=== PATIENT | male | born 1995 ===

== ENCOUNTER 2021-07-21 09:19 | Emergency (ER) | payer OTHER ==
--- NOTE | 2021-07-21 10:59 | RAD REPORT ---
EXAM DESCRIPTION: RAD - Ankle Right 3 View - 07/21/2021 10:52 am CLINICAL HISTORY: Smash injury;Pain COMPARISON: No comparisons FINDINGS: No bone or joint abnormality is detected.
--- NOTE | 2021-07-21 11:51 | ER ---
Nurse's Notes [facility] Name: Paul Duvall Age: 26 yrs Sex: Male : 1995 Arrival Date: 07/21/2021 Time: 09:35 Bed 10 Private MD: Diagnosis: Pain in right ankle and joints of right foot;Injury of Achilles tendon Presentation: 07/21 10:10 Chief complaint: Patient states: that on Wednesday07/18/2021, Patient injured his right ap3 ankle while at work. Patient reports a heavy door hit the back side of his ankle and his foot was wedged there for a reported brief moment. Patient states there was a small, superficial laceration on the backside of the ankle. Patient reports pain of 2/10 at this time. Coronavirus screen: At this time, the client does not indicate any symptoms associated with coronavirus-19. Ebola Screen: No symptoms or risks identified at this time. Initial Sepsis Screen: Does the patient meet any 2 criteria? No. Patient's initial sepsis screen is negative. Does the patient have a suspected source of infection? No. Patient's initial sepsis screen is negative. Risk Assessment: Do you want to hurt yourself or someone else? Patient reports no desire to harm self or others. Onset of symptoms was July 18, 2021. 10:10 Method Of Arrival: Ambulatory ap3 10:10 Acuity: SHEA 4 ap3 Triage Assessment: 10:17 General: Appears in no apparent distress. Behavior is calm, cooperative, appropriate ap3 for age. Pain: Complains of pain in right Achilles Pain began suddenly, 2-3 days ago. Neuro: Level of Consciousness is awake, alert, obeys commands, Oriented to person, place, time, situation, Appropriate for age. Respiratory: Airway is patent Respiratory effort is even, unlabored. Musculoskeletal: Range of motion: intact in all extremities. Historical: - Allergies: 10:14 Contrast Iodine; ap3 10:14 Codeine; ap3 - Home Meds: 10:14 None [Active]; ap3 - PMHx: 10:14 Hypothyroidism; ap3 - Immunization history:: Client reports receiving the 2nd dose of the Covid vaccine, Last tetanus immunization: unknown, Flu vaccine is not up to date. - Social history:: Smoking status: Patient denies any tobacco usage or history of. Patient uses alcohol, occasionally. street drugs, marijuana. Screenin:17 Abuse screen: Denies threats or abuse. Nutritional screening: No deficits noted. ap3 Tuberculosis screening: No symptoms or risk factors identified. Fall Risk None identified. No fall in past 12 months (0 pts). Assessment: 11:30 General: Appears in no apparent distress. uncomfortable, Behavior is calm, cooperative, jl7 appropriate for age. Pain: Complains of pain in right Achilles. Neuro: Level of Consciousness is awake, alert, obeys commands, Oriented to person, place, time, situation. Cardiovascular: Patient's skin is warm and dry. Respiratory: Airway is patent Respiratory effort is even, unlabored, Respiratory pattern is regular, symmetrical. Derm: Skin is pink, warm \T\ dry. Injury Description: Laceration sustained to right Achilles is superficial, 2.6 to 7.5 cm long, was sustained 1 day ago. no active bleeding noted at this time. Vital Signs: 10:10 BP 125 / 61; Pulse 53; Resp 17; Temp 98.4; Pulse Ox 99% ; Weight 81.65 kg; Height 6 ft. ap3 (182.88 cm); Pain 0/10; 11:30 BP 118 / 65; Pulse 55; Resp 17; Pulse Ox 100% ; jl7 10:10 Body Mass Index 24.41 (81.65 kg, 182.88 cm) ap3 ED Course: 09:35 Patient arrived in ED. ja2 09:37 Dameon Tony MD is Attending Physician. kdr 10:14 Triage completed. ap3 10:18 Patient has correct armband on for positive identification. ap3 10:18 Arm band placed on right wrist. ap3 10:53 XRAY Ankle RIGHT 3 view In Process Unspecified. EDMS 11:43 Pb Prieto RN is Primary Nurse. jl7 11:50 Collin wrap to left ankle. Wound care: to laceration located on right Achilles was dressed jl7 with Neosporin, band aid, Patient tolerated well. 12:06 No provider procedures requiring assistance completed. Patient did not have IV access jl7 during this emergency room visit. Administered Medications: No medications were administered Outcome: 11:49 Discharge ordered by . kdr 11:50 Discharged to home ambulatory. jl7 11:50 Condition: stable 11:50 Discharge instructions given to patient, Instructed on discharge instructions, follow up and referral plans. Demonstrated understanding of instructions, follow-up care, medications, Prescriptions given X 1. 12:08 Patient left the ED. jl7 Signatures: Dispatcher [employer] EDMS Dameon Tony MD MD kdr Leal, Jahala RN RN jl7 Ashley Soliz RN RN ap3 Maribel Haider Corrections: (The following items were deleted from the chart) 10:17 10:14 Allergies: No Known Allergies; ap3 ap3
--- NOTE | 2021-07-21 11:51 | EDPHYS ---
Physician Documentation [facility] Name: Paul Duvall Age: 26 yrs Sex: Male : 1995 Arrival Date: 07/21/2021 Time: 09:35 Bed 10 Private MD: ED Physician Dameon Tony HPI: 07/21 13:40 This 26 yrs old Unknown Male presents to ER via Ambulatory with complaints of Ankle kdr Injury. 13:40 The patient presents with a contusion. The complaints affect the right ankle. Onset: kdr The symptoms/episode began/occurred gradually. Context: The problem was sustained at home, resulted from Wednesday the of this month, the patient was working on a job site. He states that as he was leaving a storage container, the door swung striking him in the right posterior distal calf just above the ankle. He was continue to work on the extremity despite the injury and mild discomfort. He had a small laceration that was taped closed with good approximation. There is no other obvious exterior injury at this time. He had full range of motion of his right foot and ankle except that he had some very minor objective limitation of extension and flexion of the ankle. Nonetheless he had full control of his foot on that same side.. Historical: - Allergies: 10:14 Contrast Iodine; ap3 10:14 Codeine; ap3 - Home Meds: 10:14 None [Active]; ap3 - PMHx: 10:14 Hypothyroidism; ap3 - Immunization history:: Client reports receiving the 2nd dose of the Covid vaccine, Last tetanus immunization: unknown, Flu vaccine is not up to date. - Social history:: Smoking status: Patient denies any tobacco usage or history of. Patient uses alcohol, occasionally. street drugs, marijuana. ROS: 13:40 Constitutional: Negative for fever, chills, and weight loss, Eyes: Negative for injury, kdr pain, redness, and discharge. 13:40 MS/extremity: Positive for injury or acute deformity, decreased range of motion, erythema, pain, swelling, tenderness, tingling, warmth. Exam: 13:40 Constitutional: This is a well developed, well nourished patient who is awake, alert, kdr and in no acute distress. Head/Face: Normocephalic, atraumatic. Eyes: Pupils equal round and reactive to light, extra-ocular motions intact. Lids and lashes normal. Conjunctiva and sclera are non-icteric and not injected. Cornea within normal limits. Periorbital areas with no swelling, redness, or edema. Neck: Trachea midline, no thyromegaly or masses palpated, and no cervical lymphadenopathy. Supple, full range of motion without nuchal rigidity, or vertebral point tenderness. No Meningismus. Chest/axilla: Normal chest wall appearance and motion. Nontender with no deformity. No lesions are appreciated. Cardiovascular: Regular rate and rhythm with a normal S1 and S2. No gallops, murmurs, or rubs. Normal PMI, no JVD. No pulse deficits. Respiratory: Lungs have equal breath sounds bilaterally, clear to auscultation and percussion. No rales, rhonchi or wheezes noted. No increased work of breathing, no retractions or nasal flaring. Abdomen/GI: Soft, non-tender, with normal bowel sounds. No distension or tympany. No guarding or rebound. No evidence of tenderness throughout. Back: No spinal tenderness. No costovertebral tenderness. Full range of motion. Skin: Warm, dry with normal turgor. Normal color with no rashes, no lesions, and no evidence of cellulitis. MS/ Extremity: Pulses equal, no cyanosis. Neurovascular intact. Full, normal range of motion. Neuro: Awake and alert, GCS 15, oriented to person, place, time, and situation. Cranial nerves II-XII grossly intact. Motor strength 5/5 in all extremities. Sensory grossly intact. Cerebellar exam normal. Normal gait. Vital Signs: 10:10 BP 125 / 61; Pulse 53; Resp 17; Temp 98.4; Pulse Ox 99% ; Weight 81.65 kg; Height 6 ft. ap3 (182.88 cm); Pain 0/10; 11:30 BP 118 / 65; Pulse 55; Resp 17; Pulse Ox 100% ; jl7 10:10 Body Mass Index 24.41 (81.65 kg, 182.88 cm) ap3 MDM: 11:49 Patient medically screened. kdr 13:40 Data reviewed: vital signs, nurses notes, radiologic studies. Counseling: I had a kdr detailed discussion with the patient and/or guardian regarding: the historical points, exam findings, and any diagnostic results supporting the discharge/admit diagnosis, the need for outpatient follow up. 07/21 10:20 Order name: XRAY Ankle RIGHT 3 view; Complete Time: 11:45 ap3 07/21 11:45 Order name: Collin wrap-joint: Right ankle ; Complete Time: 12:01 kdr Administered Medications: No medications were administered Disposition Summary: 07/21/21 11:49 Discharge Ordered Location: Home kdr Problem: an ongoing problem kdr Symptoms: have improved kdr Condition: Stable kdr Diagnosis - Pain in right ankle and joints of right foot kdr - Injury of Achilles tendon kdr Followup: kdr - With: Private Physician - When: 2 - 3 days - Reason: If symptoms return, Further diagnostic work-up, Recheck today's complaints, Continuance of care, Re-evaluation by your physician Discharge Instructions: - Discharge Summary Sheet kdr - Joint Pain kdr - Musculoskeletal Pain kdr - Ankle Pain kdr - Joint Pain, [id number] kdr - Achilles Tendon Tear kdr Forms: - Medication Reconciliation Form kdr - Thank You Letter kdr Prescriptions: - Ibuprofen 600 mg Oral Tablet - take 1 tablet by ORAL route every 8 hours As needed take with food; 15 tablet; kdr Refills: 0, Product Selection Permitted Signatures: Dispatcher [employer] Dameon Myers MD MD kdr Ashley Soliz RN RN ap3 Corrections: (The following items were deleted from the chart) 10:17 10:14 Allergies: No Known Allergies; ap3 ap3
[2021-07-21 12:15] VITALS: TEMP 98.4
[2021-07-21 12:16] VITALS: BP 118/65; O2SAT 100
== END 2021-07-21 12:08 | disposition home or self-care (01) ==
LOC: ER 09:19
DX: S86.001A Unspecified injury of right Achilles tendon, initial encounter (principal); W22.8XXA Striking against or struck by other objects, initial encounter; Z88.5 Allergy status to narcotic agent; Z91.041 Radiographic dye allergy status
CPT/HCPCS: 99284